=== PATIENT | female | born 2000 | race Caucasian/White ===

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

== ENCOUNTER 2021-06-21 23:00 | Inpatient (IN) ==
[2021-06-21 23:36] LABS: Basophils # (auto) 0.02 K/uL (0-0.2); Basophils % (auto) 0.2 %; Eosinophils # (auto) 0.74 K/uL (0-0.5); Eosinophils % (auto) 8.2 %; Hematocrit (blood only) 40.6 % (37-47); Hemoglobin 13.6 g/dL (12.0-16.0); Immature Granulocytes # (auto) 0.01 K/uL (0.00-0.02); Immature Granulocytes % (auto) 0.1 %; Lymphocytes # (auto) 2.01 K/uL (1.2-3.4); Lymphocytes % (auto) 22.4 %; Mean Corpuscular Hemoglobin 30.6 pg (25-34); Mean Corpuscular Hgb Conc 33.5 g/dL (32-36); Mean Corpuscular Volume 91.4 fL (80-100); Mean Platelet Volume 10.1 fL (7.4-10.4); Monocytes # (auto) 0.61 K/uL (0.11-0.59); Monocytes % (auto) 6.8 %; Neutrophils # (auto) 5.58 K/uL (1.4-6.5); Neutrophils % (auto) 62.3 %; Platelet Count 306 K/uL (130-400); RDW Coefficient of Variation 12.3 % (11.5-14.5); RDW Standard Deviation 41.6 fL (36.4-46.3); Red Blood Count 4.44 M/uL (4.2-5.4); White Blood Count 8.97 K/uL (4.8-10.8)
[2021-06-21 23:44] LABS: Appearance Urine Turbid (Clear); Bacteria Urine Automated 1+ (Negative); Bilirubin Urine Negative (Negative); Blood Urine Negative (Negative); Color Urine Yellow; Epithelial Cell Urine Auto >30 /lpf (0-5); Glucose Urine UA Negative (Negative); Ketones Urine Negative (Negative); Leukocyte Esterase Urine Trace (Negative); Nitrite Urine Negative (Negative); Protein Urine Negative (Negative); RBC Urine Automated 0-4 /hpf (0-4); Specific Gravity Urine 1.023 (1.000-1.030); Urobilinogen Urine Negative (Negative)
--- NOTE | 2021-06-21 23:50 | Emergency Department Note ---
Impression & Plan Suicidal ideation The patient was admitted to [facility] ED Provider Note NAME: DANNY MOON AGE: 20 SEX: F ARRIVES VIA: Walk-In INFORMANT: Patient, the patient's mother ED PROVIDER(S): Alayna Trent DO CHIEF COMPLAINT: Suicidal ideation PLAN: Disposition: The patient was admitted to [facility] Condition: Stable MEDICAL DECISION MAKING: This is a 20-year-old female patient who presents to the emergency department with suicidal thoughts. Patient was medically cleared. The patient was willing to admit herself voluntarily for inpatient psychiatric care. She was evaluated by the ED psychiatric dependency case manager and then evaluated by staff from [facility]. She will be admitted there. Triage Nursing notes reviewed and agree with them. Additional history obtained from mother who was at the bedside Vital Signs: reviewed and unremarkable Differential diagnosis: Drug abuse, mood disorder, thought disorder, suicidal ideation Diagnostics interpreted by me: Laboratory studies: See below HPI: 20/F arrives for evaluation of suicidal thoughts. The patient presents to the emergency department with her mother with increasing suicidal thoughts. The patient has a history of depression and anxiety and has been having increasing suicidal thoughts as a result of not having a safe space to live. She describes living amongst a joseph infested apartment. She feels depressed about her living space and has voiced some suicidal thoughts. Patient does admit to alcohol and marijuana abuse. She is currently unemployed and has taken a leave of absence from college at [employer]. ROS: See above HPI for pertinent positives & negatives. A total of 10 systems reviewed and were otherwise negative. PAST MEDICAL HISTORY:Depression and anxiety PAST SURGICAL HISTORY:None FAMILY HISTORY:The patient's father committed suicide when she was 6 years old SOCIAL HISTORY:The patient does drink alcohol and smoke marijuana socially as she describes it. Her last use of both of these was 2 days ago. HOME MEDICATIONS:See list ALLERGIES:Various dyes VITALS:See Below PHYSICAL EXAMINATION: HEENT: Head - normocephalic and atraumatic. Pupils are equal, round, and reactive to light. Extraocular eye muscles are intact, and sclera are anicteric. Nose - moist nasal mucosa without discharge. Mouth - moist buccal mucosa. Oropharynx is nonerythematous and there is no tonsillar exudate or edema noted. Neck: Supple; no no cervical lymphadenopathy or thyromegaly Heart: Regular rate and rhythm. There is a normal S1 and S2 with no murmurs, clicks, or gallops appreciated. Lungs: Clear to auscultation bilaterally with no wheezes, rales, or rhonchi. Abdomen: Soft, completely nontender, nondistended, with good bowel sounds. There are no palpable pulsatile masses or hepatosplenomegaly. There is no guarding, rigidity, or rebound noted. Extremities: No evidence of cyanosis, clubbing, or edema. There are easily palpable peripheral pulses. Skin: warm and dry with good turgor and no rashes. Psych: The patient appears to be depressed. She has a flat affect. She does make normal eye contact and answers questions appropriately ED COURSE: Times/Reassessments: 2325: The patient was evaluated in room A5. A complete history and physical was performed. Laboratory studies were drawn as above. The patient was medically cleared. The patient was evaluated by the ED psychiatric dependency case manager. She does meet criteria for inpatient psychiatric care. She is willing to admit herself voluntarily. She was evaluated by staff from [facility]. Alayna Trent DO Past Med/Surg History Medical History (Updated 06/23/21 @ 15:47 by Alayna Trent DO) Depression Social History Smoking Status: Current some day smoker Preferred Language: American Communication Ability: Effective [employer] Worker Required: No Beliefs That Will Affect Care: None Feels Safe at Home: No Assistive Devices: Glasses Allergies Allergies Allergy/AdvReac Type Severity Reaction Status Date / Time blue dye Allergy Verified 06/22/21 10:23 red (food color) Allergy Verified 06/22/21 10:23 red dye Allergy Verified 06/22/21 10:23 blue dye AdvReac Hives Uncoded 01/31/19 18:43 Home Meds Previous Rx's Medication Instructions Recorded citalopram 10 mg tablet 10 mg PO HS #90 tab 02/04/19 hydroxyzine HCl 25 mg tablet 25 mg PO Q4H PRN #30 tab 02/04/19 Results & Data (ED) Vital Signs Vital Signs - 24 hr 06/21/21 23:02 Temperature 36.7 C Temperature Source Temporal Artery Scan Pulse Rate 80 Respiratory Rate 18 Respiratory Depth Normal Blood Pressure 113/67 Blood Pressure Mean 82 Pulse Oximetry 100 Oxygen Delivery Method Room Air Sepsis New/Unexplained Change in Mental Status N/A Sepsis Action Taken by Nursing No Action Required Laboratory Data Result diagrams: 06/21/21 23:20 06/21/21 23:20 Lab Results 06/21/21 06/21/21 06/21/21 Range/Units 23:20 23:20 23:20 WBC 8.97 (4.8-10.8) K/uL RBC 4.44 (4.2-5.4) M/uL Hgb 13.6 (12.0-16.0) g/dL Hct 40.6 (37-47) % MCV 91.4 (80-100) fL MCH 30.6 (25-34) pg MCHC 33.5 (32-36) g/dL RDW Std Deviation 41.6 (36.4-46.3) fL RDW Coeff of Norma 12.3 (11.5-14.5) % Plt Count 306 (130-400) K/uL MPV 10.1 (7.4-10.4) fL Immature Gran % (Auto) 0.1 % Neut % (Auto) 62.3 % Lymph % (Auto) 22.4 % [place] % (Auto) 6.8 % Eos % (Auto) 8.2 % Baso % (Auto) 0.2 % Neut # (Auto) 5.58 (1.4-6.5) K/uL Lymph # (Auto) 2.01 (1.2-3.4) K/uL [place] # (Auto) 0.61 H (0.11-0.59) K/uL Eos # (Auto) 0.74 H (0-0.5) K/uL Baso # (Auto) 0.02 (0-0.2) K/uL Immature Gran # (Auto) 0.01 (0.00-0.02) K/uL Sodium 141 (136-145) mmol/L Potassium 4.1 (3.5-5.1) mmol/L Chloride 108 H (98-107) mmol/L Carbon Dioxide 28 (21-32) mmol/L Anion Gap 5.0 (3-11) BUN 13 (7-18) mg/dl Creatinine 0.70 (0.6-1.2) mg/dl Est Cr Clr Drug Dosing 101.2 ml/min Est GFR ( Amer) 144.6 ml/min Est GFR (Non-Af Amer) 124.7 ml/min BUN/Creatinine Ratio 19.0 (10-20) Glucose 85 (70-99) mg/dl Calcium 9.3 (8.5-10.1) mg/dl Total Bilirubin 0.4 (0.2-1) mg/dl AST 13 L (15-37) U/L ALT 20 (12-78) U/L Alkaline Phosphatase 77 (45-117) U/L Total Protein 8.2 (6.4-8.2) gm/dl Albumin 3.9 (3.4-5.0) gm/dl Globulin 4.3 H (2.5-4.0) gm/dl Albumin/Globulin Ratio 0.9 (0.9-2) TSH 2.350 (0.300-4.500) uIu/ml Urine Color Urine Appearance (Clear) Urine pH (4.5-7.5) Ur Specific [place] (1.000-1.030) Urine Protein (Negative) Urine Glucose (UA) (Negative) Urine Ketones (Negative) Urine Blood (Negative) Urine Nitrite (Negative) Urine Bilirubin (Negative) Urine Urobilinogen (Negative) Ur Leukocyte Esterase (Negative) Urine WBC (Auto) (0-5) /hpf Urine RBC (Auto) (0-4) /hpf U Hyaline Cast (Auto) (0-5) /lpf U Epithel Cells (Auto) (0-5) /lpf Urine Bacteria (Auto) (Negative) POC Ur Test (NEG) Salicylates < 1.7 L (2.8-20) mg/dl Urine Opiates Screen (Neg) Ur Methadone, Qual (Neg) Acetaminophen < 2 L (10-30) ug/ml Urine Barbiturates (Neg) Ur Phencyclidine (PCP) (Neg) U Amphetamin/Meth Scrn (Neg) MDMA (Ecstasy) Screen (Neg) U Benzodiazepines Scrn (Neg) Ur Cocaine Metabolite (Neg) U Marijuana (THC) Screen (Neg) Ethyl Alcohol mg/dL (0-3) mg/dl 06/21/21 06/21/21 06/21/21 Range/Units 23:20 23:22 23:22 WBC (4.8-10.8) K/uL RBC (4.2-5.4) M/uL Hgb (12.0-16.0) g/dL Hct (37-47) % MCV (80-100) fL MCH (25-34) pg MCHC (32-36) g/dL RDW Std Deviation (36.4-46.3) fL RDW Coeff of Norma (11.5-14.5) % Plt Count (130-400) K/uL MPV (7.4-10.4) fL Immature Gran % (Auto) % Neut % (Auto) % Lymph % (Auto) % [place] % (Auto) % Eos % (Auto) % Baso % (Auto) % Neut # (Auto) (1.4-6.5) K/uL Lymph # (Auto) (1.2-3.4) K/uL [place] # (Auto) (0.11-0.59) K/uL Eos # (Auto) (0-0.5) K/uL Baso # (Auto) (0-0.2) K/uL Immature Gran # (Auto) (0.00-0.02) K/uL Sodium (136-145) mmol/L Potassium (3.5-5.1) mmol/L Chloride (98-107) mmol/L Carbon Dioxide (21-32) mmol/L Anion Gap (3-11) BUN (7-18) mg/dl Creatinine (0.6-1.2) mg/dl Est Cr Clr Drug Dosing ml/min Est GFR ( Amer) ml/min Est GFR (Non-Af Amer) ml/min BUN/Creatinine Ratio (10-20) Glucose (70-99) mg/dl Calcium (8.5-10.1) mg/dl Total Bilirubin (0.2-1) mg/dl AST (15-37) U/L ALT (12-78) U/L Alkaline Phosphatase (45-117) U/L Total Protein (6.4-8.2) gm/dl Albumin (3.4-5.0) gm/dl Globulin (2.5-4.0) gm/dl Albumin/Globulin Ratio (0.9-2) TSH (0.300-4.500) uIu/ml Urine Color Yellow Urine Appearance Turbid A (Clear) Urine pH 8.0 H (4.5-7.5) Ur Specific [place] 1.023 (1.000-1.030) Urine Protein Negative (Negative) Urine Glucose (UA) Negative (Negative) Urine Ketones Negative (Negative) Urine Blood Negative (Negative) Urine Nitrite Negative (Negative) Urine Bilirubin Negative (Negative) Urine Urobilinogen Negative (Negative) Ur Leukocyte Esterase Trace H (Negative) Urine WBC (Auto) 5-10 H (0-5) /hpf Urine RBC (Auto) 0-4 (0-4) /hpf U Hyaline Cast (Auto) 1-5 (0-5) /lpf U Epithel Cells (Auto) >30 H (0-5) /lpf Urine Bacteria (Auto) 1+ H (Negative) POC Ur Test (NEG) Salicylates (2.8-20) mg/dl Urine Opiates Screen Neg (Neg) Ur Methadone, Qual Neg (Neg) Acetaminophen (10-30) ug/ml Urine Barbiturates Neg (Neg) Ur Phencyclidine (PCP) Neg (Neg) U Amphetamin/Meth Scrn Neg (Neg) MDMA (Ecstasy) Screen Neg (Neg) U Benzodiazepines Scrn Neg (Neg) Ur Cocaine Metabolite Neg (Neg) U Marijuana (THC) Screen Pos H (Neg) Ethyl Alcohol mg/dL < 3.0 (0-3) mg/dl 06/21/21 Range/Units 23:22 WBC (4.8-10.8) K/uL RBC (4.2-5.4) M/uL Hgb (12.0-16.0) g/dL Hct (37-47) % MCV (80-100) fL MCH (25-34) pg MCHC (32-36) g/dL RDW Std Deviation (36.4-46.3) fL RDW Coeff of Norma (11.5-14.5) % Plt Count (130-400) K/uL MPV (7.4-10.4) fL Immature Gran % (Auto) % Neut % (Auto) % Lymph % (Auto) % [place] % (Auto) % Eos % (Auto) % Baso % (Auto) % Neut # (Auto) (1.4-6.5) K/uL Lymph # (Auto) (1.2-3.4) K/uL [place] # (Auto) (0.11-0.59) K/uL Eos # (Auto) (0-0.5) K/uL Baso # (Auto) (0-0.2) K/uL Immature Gran # (Auto) (0.00-0.02) K/uL Sodium (136-145) mmol/L Potassium (3.5-5.1) mmol/L Chloride (98-107) mmol/L Carbon Dioxide (21-32) mmol/L Anion Gap (3-11) BUN (7-18) mg/dl Creatinine (0.6-1.2) mg/dl Est Cr Clr Drug Dosing ml/min Est GFR ( Amer) ml/min Est GFR (Non-Af Amer) ml/min BUN/Creatinine Ratio (10-20) Glucose (70-99) mg/dl Calcium (8.5-10.1) mg/dl Total Bilirubin (0.2-1) mg/dl AST (15-37) U/L ALT (12-78) U/L Alkaline Phosphatase (45-117) U/L Total Protein (6.4-8.2) gm/dl Albumin (3.4-5.0) gm/dl Globulin (2.5-4.0) gm/dl Albumin/Globulin Ratio (0.9-2) TSH (0.300-4.500) uIu/ml Urine Color Urine Appearance (Clear) Urine pH (4.5-7.5) Ur Specific [place] (1.000-1.030) Urine Protein (Negative) Urine Glucose (UA) (Negative) Urine Ketones (Negative) Urine Blood (Negative) Urine Nitrite (Negative) Urine Bilirubin (Negative) Urine Urobilinogen (Negative) Ur Leukocyte Esterase (Negative) Urine WBC (Auto) (0-5) /hpf Urine RBC (Auto) (0-4) /hpf U Hyaline Cast (Auto) (0-5) /lpf U Epithel Cells (Auto) (0-5) /lpf Urine Bacteria (Auto) (Negative) POC Ur Test NEG (NEG) Salicylates (2.8-20) mg/dl Urine Opiates Screen (Neg) Ur Methadone, Qual (Neg) Acetaminophen (10-30) ug/ml Urine Barbiturates (Neg) Ur Phencyclidine (PCP) (Neg) U Amphetamin/Meth Scrn (Neg) MDMA (Ecstasy) Screen (Neg) U Benzodiazepines Scrn (Neg) Ur Cocaine Metabolite (Neg) U Marijuana (THC) Screen (Neg) Ethyl Alcohol mg/dL (0-3) mg/dl Administered Medications Escitalopram Oxalate (Escitalopram Oxalate 10 Mg Tab) 10 mg PO QAM [facility] Stop: 07/23/21 08:59 Last Admin: 06/23/21 08:26 Dose: 10 mg Documented by: [id number] Loratadine (Loratadine 10 Mg Tab) [facility] [place] [facility] [place] Stop: 07/22/21 08:59 Last Admin: 06/23/21 08:26 Dose: 10 mg Documented by: [id number] Admin: 06/22/21 09:03 Dose: 10 mg Documented by: [id number] Wixela: Non- Formulary Patient's Own Med 1 ea INH BID [facility] Stop: 07/22/21 08:59 Last Admin: 06/23/21 08:26 Dose: 1 puffs Documented by: [id number] Admin: 06/22/21 20:16 Dose: 1 puffs Documented by: [id number] Admin: 06/22/21 09:03 Dose: 1 ea Documented by: [id number] Discontinued Medications Diazepam (Diazepam 5 Mg Tablet) 5 mg PO NOW ONE Stop: 06/22/21 11:40 Last Admin: 06/22/21 12:18 Dose: 5 mg Documented by: [id number] Discharge Plan Visit Data Chief Complaint: Mental Health Evaluation Stated Complaint: FEELING BAD FOR AWHILE MENTALLY & PHYSICALLY ED Provider: Alayna Trent Discharge Problem: Suicidal ideation Patient Disposition: Admitted As Inpatient Discharge Instructions Interventions: ED Discharge Assessment Last Done: 06/22/21 02:58
[2021-06-21 23:52] LABS: Albumin Level 3.9 gm/dl (3.4-5.0); Calcium 9.3 mg/dl (8.5-10.1); Creatinine Clr Calc Pharmacy 101.2 ml/min; Est GFR (African American) 144.6 ml/min; Est GFR (Non-African American) 124.7 ml/min; Potassium 4.1 mmol/L (3.5-5.1)
[2021-06-21 23:57] LABS: Amphetamines+Metham, Urine Neg (Neg); Barbiturates, Urine Neg (Neg); Benzodiazepine, Urine Neg (Neg); Cocaine, Urine Neg (Neg); MDMA (Ecstacy), Urine Neg (Neg); Methadone, Urine Neg (Neg); Opiate, Urine Neg (Neg); Phencyclidine, Urine Neg (Neg)
[2021-06-22 00:02] LABS: Albumin Globulin Ratio 0.9 (0.9-2); Bilirubin,Total 0.4 mg/dl (0.2-1); Globulin 4.3 gm/dl (2.5-4.0); Thyroid Stimulating Hormone 2.35 uIu/ml (0.300-4.500); Total Protein 8.2 gm/dl (6.4-8.2)
[2021-06-22 00:17] LABS: Acetaminophen < 2 ug/ml (10-30); Salicylate < 1.7 mg/dl (2.8-20)
[2021-06-22] MEDS ORDERED: SODIUM CHLORIDE 0.65% NA SOLN 45 ML (OCEAN) PRN (03:26)
[2021-06-22] MEDS ORDERED: ACETAMINOPHEN 325 MG TAB PO PRN (03:26)
[2021-06-22] MEDS ORDERED: MAGNESIUM HYDROXIDE SUSP 30 ML UDC PO PRN (03:26)
[2021-06-22] MEDS ORDERED: BISMUTH SUBSALICYLATE LIQD 236 ML PO PRN (03:26)
[2021-06-22] MEDS ORDERED: hydrOXYzine HCl 25 MG TAB PO PRN ×2 (03:26)
[2021-06-22] MEDS ORDERED: ALUMINUM/MAGNESIUM SUSP 30 ML UDC PO PRN (03:26)
[2021-06-22] MEDS ORDERED: ALBUTEROL HFA 8 GM INHALER INH PRN (03:29)
[2021-06-22] MEDS: WIXELA INH SCH ×2 (09:03→20:16)
[2021-06-22] MEDS: LORATADINE 10 MG TAB PO SCH (09:03)
[2021-06-22] MEDS ORDERED: diazePAM 5 MG TABLET PO ONE (11:39)
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
[2021-06-23] MEDS: LORATADINE 10 MG TAB PO SCH (08:26)
[2021-06-23] MEDS: WIXELA INH SCH ×2 (08:26→20:41)
[2021-06-23] MEDS: ESCITALOPRAM OXALATE 10 MG TAB PO SCH (08:26)
--- NOTE | 2021-06-23 14:39 | Psychiatric Progress Note ---
Date of Service June 23, 2021 Impression / Recommendations Impression This is a 20-year-old female with a history of depression, anxiety, PTSD who presents with a decompensation of such in relation to her social and interpersonal issues. Patient will benefit from inpatient hospitalization for purposes of safety, stabilization, and medication management. She seems to be self-deprecating along with a poor sense of self-esteem. She also seems to display catastrophic thinking throughout the course of the interview. (1) Mood disorder: The patient was admitted to the [facility] ([facility]) on every 15 minute checks (behavioral with suicide precautions for safety. The patient will participate in group, recreational, and milieu therapies and will be offered additional individual and family sessions as clinically appropriate. 06/23/2021-- will continue with lexapro 10mg po qam. patient making progress 06/22/2021will plan to start the patient on Lexapro 10 mg p.o. every morning Protective Factors Assessment Employed: No Interval History Chief Complaint "I'm doing well". Review of Systems Sleep Information Total Hours of Sleep: 8 Sleep Comments: admitted at 0305. Meal Information Percent Meal Consumed - Breakfast: 50 Percent Meal Consumed - Lunch: 100 Percent Meal Consumed - Dinner: 100 Nutrition Comment: poor appetite Subjective Subjective Patient seen, chart reviewed and case discussed with treatment team, nursing and social work. Patient reports a good night of sleep and strong appetite. Compliant with lexapro medication. No side effects reported or observed. Regarding mood, patient reports some improvement which they attribute to the medications as well as the therapy they have received on the unit. Mood still remains poor. I spent 30 minutes with the patient, 50% of which was dedicated to counselling and coordination of care. Physical Exam Psychiatric Orientation: alert and oriented x 3 Apperance: appropriately dressed Eye Contact: + fair eye contact Motor Behavior: no abnormal motor movements Speech: normal rate/rhythm/volume of speech Affect: + depressed affect, + anxious affect and + tearful affect Mood: + depressed mood, + anxious mood and + dysphoric mood Thought Process: goal directed thought process, clear/coherent thought process and + perseveration Thought Content: + cognitive distortions and reality based without delusions Suicidal Thoughts: denies suicidal thoughts Homicidal Thoughts: denies homicidal thoughts Hallucinations: no auditory hallucinations and no visual hallucinations Cognition: recent memory grossly intact Estimated Intelligence: average estimated intelligence Insight: + poor insight Judgement: + fair judgement Vital Signs (Past 24 Hours) Last Vital Signs Temp 36.7 C 06/23/21 06:55 Pulse 101 H 06/23/21 06:55 Resp 16 06/23/21 06:55 BP 105/64 06/23/21 06:55 Pulse Ox 96 06/22/21 13:33 Results & Data ([facility]) Current Inpatient Medications Current Inpatient Medications: Current Inpatient Medications Acetaminophen (Acetaminophen 325 Mg Tab) 650 mg PO Q4H PRN PRN Reason: Headache or Minor Fever Stop: 07/22/21 03:25 Al Hydrox/Mg Hydrox/Simethicone (Aluminum/Magnesium Susp 30 Ml Udc) 30 ml PO Q4H PRN PRN Reason: GI Upset Stop: 07/22/21 03:25 Albuterol (Albuterol Hfa 8 Gm Inhaler) 2 puffs INH Q6R PRN PRN Reason: Shortness Of Breath Stop: 07/22/21 03:28 Bismuth Subsalicylate (Bismuth Subsalicylate Liqd 236 Ml) 15 ml PO PRN PRN PRN Reason: Loose Stool Stop: 07/22/21 03:25 Escitalopram Oxalate (Escitalopram Oxalate 10 Mg Tab) 10 mg PO QAM ROSIO Stop: 07/23/21 08:59 Last Admin: 06/23/21 08:26 Dose: 10 mg Documented by: Hydroxyzine HCl (Hydroxyzine Hcl 25 Mg Tab) 50 mg PO HSZ PRN PRN Reason: Insomnia Stop: 07/22/21 03:25 Hydroxyzine HCl (Hydroxyzine Hcl 25 Mg Tab) 25 mg PO Q4H PRN PRN Reason: Anxiety Stop: 07/22/21 03:25 Loratadine (Loratadine 10 Mg Tab) 10 mg PO QAM ROSIO Stop: 07/22/21 08:59 Last Admin: 06/23/21 08:26 Dose: 10 mg Documented by: Magnesium Hydroxide (Magnesium Hydroxide Susp 30 Ml Udc) 30 ml PO DAILY PRN PRN Reason: Constipation Stop: 07/22/21 03:25 Wixela: Non- Formulary Patient's Own Med 1 ea INH BID ROSIO Stop: 07/22/21 08:59 Last Admin: 06/23/21 08:26 Dose: 1 puffs Documented by: Sodium Chloride (Sodium Chloride 0.65% Na Soln 45 Ml ([place])) 1 - 2 sprays NA PRN PRN PRN Reason: Nasal Dryness/Congestion Stop: 07/22/21 03:25 Mental Health & Subst Abuse Tx Therapist Name of Therapist: [facility] Therapist's Date of Therapist Appointment: 06/23/21 Therapy Appointment Comment: [address], [place], [address] Machine Filler Shredder Name of Machine Filler Shredder: N/A Post Discharge Appointments Primary Care Physician Name Of Family Doctor: [facility] Shannen Mora Primary Care Provider Appointment Comment: [address], [place] [address] Contact Information Discharge Discharge Address: [address] [place] [id number]
[2021-06-23] MEDS ORDERED: LORazepam 1 MG TAB PO PRN (14:54)
[2021-06-24] MEDS: LORATADINE 10 MG TAB PO SCH (09:01)
[2021-06-24] MEDS: ESCITALOPRAM OXALATE 10 MG TAB PO SCH (09:01)
[2021-06-24] MEDS: WIXELA INH SCH ×2 (09:02→21:03)
--- NOTE | 2021-06-24 16:22 | Psychiatric Progress Note ---
Date of Service June 24, 2021 Impression / Recommendations Impression This is a 20-year-old female with a history of depression, anxiety, PTSD who presents with a decompensation of such in relation to her social and interpersonal issues. Patient will benefit from inpatient hospitalization for purposes of safety, stabilization, and medication management. She seems to be self-deprecating along with a poor sense of self-esteem. She also seems to display catastrophic thinking throughout the course of the interview. (1) Mood disorder: The patient was admitted to the [facility] ([facility]) on every 15 minute checks (behavioral with suicide precautions for safety. The patient will participate in group, recreational, and milieu therapies and will be offered additional individual and family sessions as clinically appropriate. 06/24/2021atient making incremental progress. 06/23/2021-- will continue with lexapro 10mg po qam. patient making progress 06/22/2021will plan to start the patient on Lexapro 10 mg p.o. every morning Protective Factors Assessment Employed: No Interval History Chief Complaint "I called my mom". Review of Systems Sleep Information Total Hours of Sleep: 7.25 Sleep Comments: pt on q-15 minute checks Meal Information Percent Meal Consumed - Breakfast: 50 Percent Meal Consumed - Lunch: 100 Percent Meal Consumed - Dinner: 100 Nutrition Comment: poor appetite Subjective Subjective Patient seen, chart reviewed and case discussed with treatment team, nursing and social work. Patient reports a good night of sleep and strong appetite. No side effects reported or observed. Regarding mood, patient reports some improvement which they attribute to the medications as well as the therapy they have received on the unit. Patient has been in communications with her mother, who she reports that she had a good conversation with. She continues to assess her ability to live in the community and where about that would be. Attends groups and interacts appropriately with peers. I spent 30 minutes with the patient, 50% of which was dedicated to counselling and coordination of care. Physical Exam Psychiatric Orientation: alert and oriented x 3 Apperance: appropriately dressed Eye Contact: + fair eye contact Motor Behavior: no abnormal motor movements Speech: normal rate/rhythm/volume of speech Affect: + depressed affect, + anxious affect and + tearful affect Mood: + depressed mood, + anxious mood and + dysphoric mood Thought Process: goal directed thought process, clear/coherent thought process and + perseveration Thought Content: + cognitive distortions and reality based without delusions Suicidal Thoughts: denies suicidal thoughts Homicidal Thoughts: denies homicidal thoughts Hallucinations: no auditory hallucinations and no visual hallucinations Cognition: recent memory grossly intact Estimated Intelligence: average estimated intelligence Insight: + poor insight Judgement: + fair judgement Vital Signs (Past 24 Hours) Last Vital Signs Temp 36.5 C 06/24/21 06:40 Pulse 71 06/24/21 06:41 Resp 16 06/24/21 06:40 BP 104/67 06/24/21 06:41 Pulse Ox 96 06/22/21 13:33 Results & Data ([facility]) Current Inpatient Medications Current Inpatient Medications: Current Inpatient Medications Acetaminophen (Acetaminophen 325 Mg Tab) 650 mg PO Q4H PRN PRN Reason: Headache or Minor Fever Stop: 07/22/21 03:25 Al Hydrox/Mg Hydrox/Simethicone (Aluminum/Magnesium Susp 30 Ml Udc) 30 ml PO Q4H PRN PRN Reason: GI Upset Stop: 07/22/21 03:25 Albuterol (Albuterol Hfa 8 Gm Inhaler) 2 puffs INH Q6R PRN PRN Reason: Shortness Of Breath Stop: 07/22/21 03:28 Bismuth Subsalicylate (Bismuth Subsalicylate Liqd 236 Ml) 15 ml PO PRN PRN PRN Reason: Loose Stool Stop: 07/22/21 03:25 Escitalopram Oxalate (Escitalopram Oxalate 10 Mg Tab) 10 mg PO QAM ROSIO Stop: 07/23/21 08:59 Last Admin: 06/24/21 09:01 Dose: 10 mg Documented by: Hydroxyzine HCl (Hydroxyzine Hcl 25 Mg Tab) 50 mg PO HSZ PRN PRN Reason: Insomnia Stop: 07/22/21 03:25 Hydroxyzine HCl (Hydroxyzine Hcl 25 Mg Tab) 25 mg PO Q4H PRN PRN Reason: Anxiety Stop: 07/22/21 03:25 Loratadine (Loratadine 10 Mg Tab) 10 mg PO QAM ROSIO Stop: 07/22/21 08:59 Last Admin: 06/24/21 09:01 Dose: 10 mg Documented by: Lorazepam (Lorazepam 1 Mg Tab) 1 mg PO Q6 PRN PRN Reason: Anxiety Stop: 07/23/21 14:53 Magnesium Hydroxide (Magnesium Hydroxide Susp 30 Ml Udc) 30 ml PO DAILY PRN PRN Reason: Constipation Stop: 07/22/21 03:25 Wixela: Non- Formulary Patient's Own Med 1 ea INH BID ROSIO Stop: 07/22/21 08:59 Last Admin: 06/24/21 09:02 Dose: 1 puffs Documented by: Sodium Chloride (Sodium Chloride 0.65% Na Soln 45 Ml ([place])) 1 - 2 sprays NA PRN PRN PRN Reason: Nasal Dryness/Congestion Stop: 07/22/21 03:25 Mental Health & Subst Abuse Tx Psychiatrist Name of Psychiatrist: Roopa Santacruz Psychiatrist's Psychiatric Appointment Comment: Telehealth Therapist Name of Therapist: [facility] Therapist's Date of Therapist Appointment: 06/29/21 Time of Therapist Appointment: 1:00 p.m. Therapy Appointment Comment: Telehealth Butter Liquefier Name of Butter Liquefier: N/A Post Discharge Appointments Primary Care Physician Name Of Family Doctor: [facility] - Shannen Mora Primary Care Provider Appointment Comment: [address], [place] [address] Contact Information Discharge Discharge Address: [address] [place] [id number]
[2021-06-25] MEDS: ESCITALOPRAM OXALATE 10 MG TAB PO SCH (09:07)
[2021-06-25] MEDS: LORATADINE 10 MG TAB PO SCH (09:07)
[2021-06-25] MEDS: WIXELA INH SCH ×2 (09:08→21:10)
[2021-06-25] MEDS ORDERED: NON-FORMULARY MEDICATION (Methylprednisolone 4 mg tablets,dose pack) SCH (11:45)
--- NOTE | 2021-06-25 11:45 | Psychiatric Progress Note ---
Date of Service June 25, 2021 Impression / Recommendations Impression This is a 20-year-old female with a history of depression, anxiety, PTSD who presents with a decompensation of such in relation to her social and interpersonal issues. Patient will benefit from inpatient hospitalization for purposes of safety, stabilization, and medication management. She seems to be self-deprecating along with a poor sense of self-esteem. She also seems to display catastrophic thinking throughout the course of the interview. (1) Mood disorder: The patient was admitted to the [facility] ([facility]) on every 15 minute checks (behavioral with suicide precautions for safety. The patient will participate in group, recreational, and milieu therapies and will be offered additional individual and family sessions as clinically appropriate. 06/25/2021--patient with some progress, will increase Lexapro dose to 20mg starting tomorrow morning 06/24/2021atient making incremental progress. 06/23/2021-- will continue with lexapro 10mg po qam. patient making progress 06/22/2021will plan to start the patient on Lexapro 10 mg p.o. every morning Protective Factors Assessment Employed: No Interval History Chief Complaint "I'm okay". Review of Systems Sleep Information Total Hours of Sleep: 7 Sleep Comments: pt on q-15 minute checks Meal Information Percent Meal Consumed - Breakfast: 90 Percent Meal Consumed - Lunch: 100 Percent Meal Consumed - Dinner: 75 Nutrition Comment: poor appetite Subjective Subjective Patient seen, chart reviewed and case discussed with treatment team, nursing and social work. Patient reports a good night of sleep and strong appetite. No side effects reported or observed. Regarding mood, patient reports some improvement which they attribute to the medications as well as the therapy they have received on the unit. She still reports feeling depressed, but denies suicidal ideation. Patient is reporting a return of her atopic dermatitis. She stated that she had this prior to coming into the unit but had not initiated treatment. She did bring a methylprednisone pack with her but was reluctant to take as fearful that it may affect her mood. However today's patient's condition with regards to her atopic dermatitis worsened and she is requesting the medication. She was informed that it will be provided for her. I spent 30 minutes with the patient, 50% of which was dedicated to counselling and coordination of care. Physical Exam Psychiatric Orientation: alert and oriented x 3 Apperance: appropriately dressed Eye Contact: + fair eye contact Motor Behavior: no abnormal motor movements Speech: normal rate/rhythm/volume of speech Affect: + depressed affect, + anxious affect and + tearful affect Mood: + depressed mood, + anxious mood and + dysphoric mood Thought Process: goal directed thought process, clear/coherent thought process and + perseveration Thought Content: + cognitive distortions and reality based without delusions Suicidal Thoughts: denies suicidal thoughts Homicidal Thoughts: denies homicidal thoughts Hallucinations: no auditory hallucinations and no visual hallucinations Cognition: recent memory grossly intact Estimated Intelligence: average estimated intelligence Insight: + poor insight Judgement: + fair judgement Vital Signs (Past 24 Hours) Last Vital Signs Temp 36.7 C 06/25/21 06:53 Pulse 75 06/25/21 06:53 Resp 18 06/25/21 06:53 BP 100/69 06/25/21 06:53 Pulse Ox 96 06/22/21 13:33 Results & Data ([facility]) Current Inpatient Medications Current Inpatient Medications: Current Inpatient Medications Acetaminophen (Acetaminophen 325 Mg Tab) 650 mg PO Q4H PRN PRN Reason: Headache or Minor Fever Stop: 07/22/21 03:25 Al Hydrox/Mg Hydrox/Simethicone (Aluminum/Magnesium Susp 30 Ml Udc) 30 ml PO Q4H PRN PRN Reason: GI Upset Stop: 07/22/21 03:25 Albuterol (Albuterol Hfa 8 Gm Inhaler) 2 puffs INH Q6R PRN PRN Reason: Shortness Of Breath Stop: 07/22/21 03:28 Bismuth Subsalicylate (Bismuth Subsalicylate Liqd 236 Ml) 15 ml PO PRN PRN PRN Reason: Loose Stool Stop: 07/22/21 03:25 Escitalopram Oxalate (Escitalopram Oxalate 10 Mg Tab) 10 mg PO QAM ROSIO Stop: 07/23/21 08:59 Last Admin: 06/25/21 09:07 Dose: 10 mg Documented by: Hydroxyzine HCl (Hydroxyzine Hcl 25 Mg Tab) 50 mg PO HSZ PRN PRN Reason: Insomnia Stop: 07/22/21 03:25 Hydroxyzine HCl (Hydroxyzine Hcl 25 Mg Tab) 25 mg PO Q4H PRN PRN Reason: Anxiety Stop: 07/22/21 03:25 Loratadine (Loratadine 10 Mg Tab) 10 mg PO QAM ROSIO Stop: 07/22/21 08:59 Last Admin: 06/25/21 09:07 Dose: 10 mg Documented by: Lorazepam (Lorazepam 1 Mg Tab) 1 mg PO Q6 PRN PRN Reason: Anxiety Stop: 07/23/21 14:53 Magnesium Hydroxide (Magnesium Hydroxide Susp 30 Ml Udc) 30 ml PO DAILY PRN PRN Reason: Constipation Stop: 07/22/21 03:25 Wixela: Non- Formulary Patient's Own Med 1 ea INH BID ROSIO Stop: 07/22/21 08:59 Last Admin: 06/25/21 09:08 Dose: 1 puffs Documented by: Sodium Chloride (Sodium Chloride 0.65% Na Soln 45 Ml ([place])) 1 - 2 sprays NA PRN PRN PRN Reason: Nasal Dryness/Congestion Stop: 07/22/21 03:25 Mental Health & Subst Abuse Tx Psychiatrist Name of Psychiatrist: Roopa Santacruz Psychiatrist's Psychiatric Appointment Comment: Telehealth Therapist Name of Therapist: [facility] Therapist's Date of Therapist Appointment: 06/29/21 Time of Therapist Appointment: 1:00 p.m. Therapy Appointment Comment: Telehealth Mortgage Specialist Name of Mortgage Specialist: N/A Post Discharge Appointments Primary Care Physician Name Of Family Doctor: [facility] - Shannen Mora Primary Care Provider Appointment Comment: [facility] [place] [id number] Contact Information Discharge Discharge Address: [address] [place] [id number]
[2021-06-25] MEDS: methylPREDNISolone 4 MG TAB, 6 DAY TAPER PO SCH ×3 (12:43→21:10)
[2021-06-26 09:35] LABS: Marijuana Quant, GCMS Urine 316 ng/mL (<5)
[2021-06-26] MEDS: WIXELA INH SCH ×2 (10:02→20:50)
[2021-06-26] MEDS: ESCITALOPRAM OXALATE 20 MG TAB PO SCH (10:02)
[2021-06-26] MEDS: LORATADINE 10 MG TAB PO SCH (10:02)
[2021-06-26] MEDS: methylPREDNISolone 4 MG TAB, 6 DAY TAPER PO SCH ×4 (10:03→20:50)
--- NOTE | 2021-06-26 11:41 | Psychiatric Progress Note ---
Date of Service June 26, 2021 Impression / Recommendations Impression This is a 20-year-old female with a history of depression, anxiety, PTSD who presents with a decompensation of such in relation to her social and interpersonal issues. Patient will benefit from inpatient hospitalization for purposes of safety, stabilization, and medication management. She seems to be self-deprecating along with a poor sense of self-esteem. She also seems to display catastrophic thinking throughout the course of the interview. (1) Mood disorder: The patient was admitted to the [facility] ([facility]) on every 15 minute checks (behavioral with suicide precautions for safety. The patient will participate in group, recreational, and milieu therapies and will be offered additional individual and family sessions as clinically appropriate. 06/26/2021atient with relative stability of mood, appears improved from admission. We will continue 20 mg of Lexapro for now and start discharge planning. 06/25/2021--patient with some progress, will increase Lexapro dose to 20mg starting tomorrow morning 06/24/2021atient making incremental progress. 06/23/2021-- will continue with lexapro 10mg po qam. patient making progress 06/22/2021will plan to start the patient on Lexapro 10 mg p.o. every morning Protective Factors Assessment Employed: No Interval History Chief Complaint "Im doing okay". Review of Systems Sleep Information Total Hours of Sleep: 8 Sleep Comments: pt on q-15 minute checks Meal Information Percent Meal Consumed - Breakfast: 100 Percent Meal Consumed - Lunch: 100 Percent Meal Consumed - Dinner: 100 Nutrition Comment: poor appetite Subjective Subjective Patient seen, chart reviewed and case discussed with treatment team, nursing and social work. Patient reports a good night of sleep and strong appetite. Patient took the increased dose of Lexapro today, 20 mg. No side effects reported or observed. Patient reports that her atopic dermatitis is better with the methylprednisolone tablets. Denies abrupt changes to mood. Regarding mood, patient reports some improvement which they attribute to the medications as well as the therapy they have received on the unit. She reports feeling more stable and is willing to consider living home with mom. We will have family meeting today and likely start discharge planning following. I spent 30 minutes with the patient, 50% of which was dedicated to counselling and coordination of care. Physical Exam Psychiatric Orientation: alert and oriented x 3 Apperance: appropriately dressed Eye Contact: + fair eye contact Motor Behavior: no abnormal motor movements Speech: normal rate/rhythm/volume of speech Affect: + depressed affect, + anxious affect and + tearful affect Mood: + depressed mood, + anxious mood and + dysphoric mood Thought Process: goal directed thought process, clear/coherent thought process and + perseveration Thought Content: + cognitive distortions and reality based without delusions Suicidal Thoughts: denies suicidal thoughts Homicidal Thoughts: denies homicidal thoughts Hallucinations: no auditory hallucinations and no visual hallucinations Cognition: recent memory grossly intact Estimated Intelligence: average estimated intelligence Insight: + poor insight Judgement: + fair judgement Vital Signs (Past 24 Hours) Last Vital Signs Temp 36.6 C 06/26/21 06:00 Pulse 106 H 06/26/21 06:24 Resp 16 06/26/21 06:00 BP 100/61 06/26/21 06:24 Pulse Ox 96 06/22/21 13:33 Results & Data (U) Laboratory Results Laboratory Results - last 24 hr 06/21/21 23:22 U Marijuana THC Carboxy 316 H Drug Screen Comment SEE NOTE Current Inpatient Medications Current Inpatient Medications: Current Inpatient Medications Acetaminophen (Acetaminophen 325 Mg Tab) 650 mg PO Q4H PRN PRN Reason: Headache or Minor Fever Stop: 07/22/21 03:25 Al Hydrox/Mg Hydrox/Simethicone (Aluminum/Magnesium Susp 30 Ml Udc) 30 ml PO Q4H PRN PRN Reason: GI Upset Stop: 07/22/21 03:25 Albuterol (Albuterol Hfa 8 Gm Inhaler) 2 puffs INH Q6R PRN PRN Reason: Shortness Of Breath Stop: 07/22/21 03:28 Bismuth Subsalicylate (Bismuth Subsalicylate Liqd 236 Ml) 15 ml PO PRN PRN PRN Reason: Loose Stool Stop: 07/22/21 03:25 Escitalopram Oxalate (Escitalopram Oxalate 20 Mg Tab) 20 mg PO QAM ROSIO Stop: 07/26/21 08:59 Last Admin: 06/26/21 10:02 Dose: 20 mg Documented by: Hydroxyzine HCl (Hydroxyzine Hcl 25 Mg Tab) 50 mg PO HSZ PRN PRN Reason: Insomnia Stop: 07/22/21 03:25 Hydroxyzine HCl (Hydroxyzine Hcl 25 Mg Tab) 25 mg PO Q4H PRN PRN Reason: Anxiety Stop: 07/22/21 03:25 Loratadine (Loratadine 10 Mg Tab) 10 mg PO QAM ROSIO Stop: 07/22/21 08:59 Last Admin: 06/26/21 10:02 Dose: 10 mg Documented by: Lorazepam (Lorazepam 1 Mg Tab) 1 mg PO Q6 PRN PRN Reason: Anxiety Stop: 07/23/21 14:53 Magnesium Hydroxide (Magnesium Hydroxide Susp 30 Ml Udc) 30 ml PO DAILY PRN PRN Reason: Constipation Stop: 07/22/21 03:25 Methylprednisolone (Methylprednisolone 4 Mg Tab, 6 Day Taper) 1 ea PO ACHS ROSIO Stop: 06/27/21 23:59 Last Admin: 06/26/21 10:03 Dose: 1 ea Documented by: Methylprednisolone (Methylprednisolone 4 Mg Tab, 6 Day Taper) 1 ea PO TID ROSIO Stop: 06/28/21 21:01 Methylprednisolone (Methylprednisolone 4 Mg Tab, 6 Day Taper) 1 ea PO BID ROSIO Stop: 06/29/21 21:01 Methylprednisolone (Methylprednisolone 4 Mg Tab, 6 Day Taper) 1 ea PO QAM ROSIO Stop: 06/30/21 09:01 Wixela: Non- Formulary Patient's Own Med 1 ea INH BID ROSIO Stop: 07/22/21 08:59 Last Admin: 06/26/21 10:02 Dose: 1 puffs Documented by: Sodium Chloride (Sodium Chloride 0.65% Na Soln 45 Ml ([place])) 1 - 2 sprays NA PRN PRN PRN Reason: Nasal Dryness/Congestion Stop: 07/22/21 03:25 Mental Health & Subst Abuse Tx Psychiatrist Name of Psychiatrist: Roopa Santacruz Psychiatrist's Psychiatric Appointment Comment: Telehealth Therapist Name of Therapist: [facility] Therapist's Date of Therapist Appointment: 06/29/21 Time of Therapist Appointment: 1:00 p.m. Therapy Appointment Comment: Telehealth Group Supervisor Yard Name of Group Supervisor Yard: N/A Post Discharge Appointments Primary Care Physician Name Of Family Doctor: [facility] - Shannen Mora Primary Care Provider Appointment Comment: [address], [place] [address] Contact Information Discharge Discharge Address: [address], [place] [address]
[2021-06-27] MEDS: ESCITALOPRAM OXALATE 20 MG TAB PO SCH (08:52)
[2021-06-27] MEDS: LORATADINE 10 MG TAB PO SCH (08:52)
[2021-06-27] MEDS: methylPREDNISolone 4 MG TAB, 6 DAY TAPER PO SCH ×4 (08:52→21:12)
[2021-06-27] MEDS: WIXELA INH SCH ×2 (10:36→21:13)
[2021-06-27] MEDS: FLUTICASONE/VILANTEROL 100/25MCG 14 PUFFS/INHALER INH SCH (10:40)
--- NOTE | 2021-06-27 15:42 | Psychiatric Progress Note ---
Date of Service June 27, 2021 Impression / Recommendations Impression This is a 20-year-old female with a history of depression, anxiety, PTSD who presents with a decompensation of such in relation to her social and interpersonal issues. Patient will benefit from inpatient hospitalization for purposes of safety, stabilization, and medication management. She seems to be self-deprecating along with a poor sense of self-esteem. She also seems to display catastrophic thinking throughout the course of the interview. (1) Mood disorder: The patient was admitted to the [facility] ([facility]) on every 15 minute checks (behavioral with suicide precautions for safety. The patient will participate in group, recreational, and milieu therapies and will be offered additional individual and family sessions as clinically appropriate. 06/27/2021we will continue with the current regimen for now, and we will continue to discharge planning 06/26/2021atient with relative stability of mood, appears improved from admi ssion. We will continue 20 mg of Lexapro for now and start discharge planning. 06/25/2021--patient with some progress, will increase Lexapro dose to 20mg starting tomorrow morning 06/24/2021atient making incremental progress. 06/23/2021-- will continue with lexapro 10mg po qam. patient making progress 06/22/2021will plan to start the patient on Lexapro 10 mg p.o. every morning Protective Factors Assessment Employed: No Interval History Chief Complaint "I had a rough family meeting". Review of Systems Sleep Information Total Hours of Sleep: 6.5 Sleep Comments: pt on q-15 minute checks Meal Information Percent Meal Consumed - Breakfast: 90 Percent Meal Consumed - Lunch: 100 Percent Meal Consumed - Dinner: 50 Nutrition Comment: pt. declined lunch; which was held for later Subjective Subjective Patient was seen & assessed and interval progress reviewed with treatment team nursing and social work Patient was initially scheduled to be discharged today, however she was quite upset by the family meeting yesterday and was unable to contract for safety outside of the hospital today. She continues to endorse suicidal thoughts, although they seem to be somewhat related to her placement and living situation, matters which she acknowledges cannot be fixed while on the psychiatric inpatient unit. She is compliant with her medication and cooperative with staff. She is participating in groups and interacting with her peers appropriately She is sleeping well and eating without issue I spent 30 minutes with the patient, 50% of which was dedicated to counselling and coordination of care. Physical Exam Psychiatric Orientation: alert and oriented x 3 Apperance: appropriately dressed Eye Contact: + fair eye contact Motor Behavior: no abnormal motor movements Speech: normal rate/rhythm/volume of speech Affect: + depressed affect, + anxious affect and + tearful affect Mood: + depressed mood, + anxious mood and + dysphoric mood Thought Process: goal directed thought process, clear/coherent thought process and + perseveration Thought Content: + cognitive distortions and reality based without delusions Suicidal Thoughts: denies suicidal thoughts Homicidal Thoughts: denies homicidal thoughts Hallucinations: no auditory hallucinations and no visual hallucinations Cognition: recent memory grossly intact Estimated Intelligence: average estimated intelligence Insight: + poor insight Judgement: + fair judgement Vital Signs (Past 24 Hours) Last Vital Signs Temp 36.7 C 06/27/21 06:34 Pulse 78 06/27/21 06:34 Resp 16 06/27/21 06:34 BP 113/69 06/27/21 06:34 Pulse Ox 96 06/22/21 13:33 Results & Data ([facility]) Current Inpatient Medications Current Inpatient Medications: Current Inpatient Medications Acetaminophen (Acetaminophen 325 Mg Tab) 650 mg PO Q4H PRN PRN Reason: Headache or Minor Fever Stop: 07/22/21 03:25 Al Hydrox/Mg Hydrox/Simethicone (Aluminum/Magnesium Susp 30 Ml Udc) 30 ml PO Q4H PRN PRN Reason: GI Upset Stop: 07/22/21 03:25 Albuterol (Albuterol Hfa 8 Gm Inhaler) 2 puffs INH Q6R PRN PRN Reason: Shortness Of Breath Stop: 07/22/21 03:28 Bismuth Subsalicylate (Bismuth Subsalicylate Liqd 236 Ml) 15 ml PO PRN PRN PRN Reason: Loose Stool Stop: 07/22/21 03:25 Escitalopram Oxalate (Escitalopram Oxalate 20 Mg Tab) 20 mg PO QAM ROSIO Stop: 07/26/21 08:59 Last Admin: 06/27/21 08:52 Dose: 20 mg Documented by: Fluticasone/Vilanterol (Fluticasone/Vilanterol 100/25mcg 14 Puffs/Inhaler) 1 puffs INH DAILY ROSIO Stop: 07/28/21 08:59 Last Admin: 06/27/21 10:40 Dose: 1 puffs Documented by: Hydroxyzine HCl (Hydroxyzine Hcl 25 Mg Tab) 50 mg PO HSZ PRN PRN Reason: Insomnia Stop: 07/22/21 03:25 Hydroxyzine HCl (Hydroxyzine Hcl 25 Mg Tab) 25 mg PO Q4H PRN PRN Reason: Anxiety Stop: 07/22/21 03:25 Last Admin: 06/26/21 13:10 Dose: 25 mg Documented by: Loratadine (Loratadine 10 Mg Tab) 10 mg PO QAM ROSIO Stop: 07/22/21 08:59 Last Admin: 06/27/21 08:52 Dose: 10 mg Documented by: Lorazepam (Lorazepam 1 Mg Tab) 1 mg PO Q6 PRN PRN Reason: Anxiety Stop: 07/23/21 14:53 Magnesium Hydroxide (Magnesium Hydroxide Susp 30 Ml Udc) 30 ml PO DAILY PRN PRN Reason: Constipation Stop: 07/22/21 03:25 Methylprednisolone (Methylprednisolone 4 Mg Tab, 6 Day Taper) 1 ea PO ACHS ROSIO Stop: 06/27/21 23:59 Last Admin: 06/27/21 12:31 Dose: 1 ea Documented by: Methylprednisolone (Methylprednisolone 4 Mg Tab, 6 Day Taper) 1 ea PO TID ROSIO Stop: 06/28/21 21:01 Methylprednisolone (Methylprednisolone 4 Mg Tab, 6 Day Taper) 1 ea PO BID ROSIO Stop: 06/29/21 21:01 Methylprednisolone (Methylprednisolone 4 Mg Tab, 6 Day Taper) 1 ea PO QAM ROSIO Stop: 06/30/21 09:01 [place]: Non- Formulary Patient's Own Med 1 ea INH BID ROSIO Stop: 07/22/21 08:59 Last Admin: 06/27/21 10:36 Dose: Not Given Documented by: Sodium Chloride (Sodium Chloride 0.65% Na Soln 45 Ml ([place])) 1 - 2 sprays NA PRN PRN PRN Reason: Nasal Dryness/Congestion Stop: 07/22/21 03:25 Mental Health & Subst Abuse Tx Psychiatrist Name of Psychiatrist: [facility] Psychiatrist's Psychiatric Appointment Comment: Telehealth Therapist Name of Therapist: [facility] The[facility]ist's Date of Therapist Appointment: 06/29/21 Time of Therapist Appointment: 1:00 p.m. Therapy Appointment Comment: Telehealth Manager Transplant Name of Manager Transplant: N/A Post Discharge Appointments Primary Care Physician Name Of Family Doctor: [facility] Shannen Mora Primary Care Provider Appointment Comment: [id number] [place] [address], [place] [id number] Contact Information Discharge Discharge Address: [address] [place] [id number]
[2021-06-28] MEDS ORDERED: methylPREDNISolone 4 MG TAB, 6 DAY TAPER PO SCH (09:00)
[2021-06-28] MEDS: ESCITALOPRAM OXALATE 20 MG TAB PO SCH (09:15)
[2021-06-28] MEDS: LORATADINE 10 MG TAB PO SCH (09:15)
[2021-06-28] MEDS: methylPREDNISolone 4 MG TAB, 6 DAY TAPER PO SCH ×2 (09:16→13:09)
[2021-06-28] MEDS: FLUTICASONE/VILANTEROL 100/25MCG 14 PUFFS/INHALER INH SCH (09:16)
[2021-06-28] MEDS: WIXELA INH SCH (09:17)
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
[2021-06-29] MEDS ORDERED: methylPREDNISolone 4 MG TAB, 6 DAY TAPER PO SCH (09:00)
[2021-06-29] MEDS ORDERED: FLUTICASONE/VILANTEROL 100/25MCG 14 PUFFS/INHALER INH SCH (09:00)
[2021-06-30] MEDS ORDERED: methylPREDNISolone 4 MG TAB, 6 DAY TAPER PO SCH (09:00)
== END 2021-06-28 13:57 | disposition home or self-care (01) | DRG 881 ==
LOC: ED 23:00 → 3S 06-22 02:38 → SUATTDRO 06-22 02:38 → 3S 06-22 02:58

== ENCOUNTER 2022-06-23 21:12 | Inpatient (IN) ==
[2022-06-23 22:48] LABS: Basophils # (auto) 0.05 K/uL (0-0.2); Basophils % (auto) 0.8 %; Eosinophils # (auto) 0.44 K/uL (0-0.50); Eosinophils % (auto) 6.6 %; Hematocrit (blood only) 39.6 % (34.1-44.9); Hemoglobin 13.5 g/dl (12.0-16.0); Immature Granulocytes # (auto) 0.01 K/uL (0.00-0.02); Immature Granulocytes % (auto) 0.2 %; Lymphocytes # (auto) 1.78 K/uL (1.2-3.4); Lymphocytes % (auto) 26.8 %; Mean Corpuscular Hemoglobin 30.8 pg (25.0-34.0); Mean Corpuscular Hgb Conc 34.1 g/dL (32.0-36.0); Mean Corpuscular Volume 90.2 fL (80.0-100.0); Mean Platelet Volume 9.5 fL (9.4-12.3); Monocytes # (auto) 0.36 K/uL (0.24-0.82); Monocytes % (auto) 5.4 %; Neutrophils % (auto) 60.2 %; Platelet Count 232 K/uL (130-400); RDW Coefficient of Variation 11.6 % (11.5-14.5); RDW Standard Deviation 38.1 fL (36.4-46.3); Red Blood Count 4.39 M/uL (3.93-5.22); White Blood Count 6.64 K/ul (4.8-10.8)
[2022-06-23] MEDS ORDERED: LURASIDONE HCL 40 MG TAB PO ONE (22:57)
[2022-06-23] MEDS ORDERED: GABAPENTIN 300 MG CAP PO ONE (22:57)
--- NOTE | 2022-06-23 22:57 | Emergency Department Note ---
Impression & Plan Generalized anxiety disorder with panic attacks, Depression with suicidal ideation ED Provider Note Provider: Agus Powell MD DATE OF SERVICE: 06/23/2022 CHIEF COMPLAINT: Worsening depression and anxiety HISTORY OF PRESENT ILLNESS: Patient is a 21-year-old female history of anxiety and depression presenting here today with mother. Currently living and working in [place]. Worsening anxiety depression last several weeks and told mother and was driven here for further evaluation. Prior inpatient stays here. Patient states she is long history of suicidal thoughts and depression. Suicide by father when she was younger. Prior history of suicide attempts but not recently. Patient states she is having worsening thoughts and is concerned she may try to harm her self. Denies a plan to me. Patient denies any HI. States she is wishing for inpatient treatment. Patient states he been taking her medications and working with a therapist and this is keeping the worst of the pain attacks away but she still quite anxious and depressed and not functional and cries most of the day. REVIEW OF SYSTEMS: A total of 10 review of systems was obtained and negative except as stated above in the HPI. PAST MEDICAL HISTORY: As noted above MEDICATIONS: Reviewed home medications SOCIAL HISTORY: lives and works in [place] PHYSICAL EXAM: GENERAL: alert and oriented in no acute distress on stretcher Head: normocephalic and atraumatic EYES: No injection, discharge or icterus. NECK: Trachea midline. Supple. ENT: Mucous membranes pink and moist. LUNGS: Airway patent. No retractions. Breath sounds clear with good air entry bilaterally. HEART: Regular rate and rhythm. No chest wall tenderness SKIN: Acyanotic, warm, dry, without rashes EXTREMITIES: Without swelling, tenderness or deformity NEUROLOGICAL: No focal deficits. No aphasia. No facial droop or slurred speech. Ambulatory. Psych: Endorses anxiety and depression tearful. Denies homicidal ideation. Not responding to external stimuli. Patient's laboratory studies reviewed. Differential includes Mood disorder, infection, hypoglycemia, electrolyte abnormalities, cardiac sources, intracerebral event, toxicologic, trauma, neurologic, as well as other pathologies. IMPRESSION/MEDICAL DECISION MAKING: Patient somewhat tearful. Basic labs obtained. No acute findings. Worsening depression and now some suicidal thoughts she states concern for her safety. Wishes for voluntary inpatient treatment. Seen with case management. Bed search initiated. Being evaluated by [facility] for possible admission there. 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 Analysis Required: No Beliefs That Will Affect Care: None Feels Safe at Home: Yes Assistive Devices: Glasses Allergies Allergies Allergy/AdvReac Type Severity Reaction Status Date / Time blue dye Allergy Verified 06/22/21 10:23 red (food color) Allergy Verified 06/22/21 10:23 red dye Allergy Verified 06/22/21 10:23 blue dye AdvReac Hives Uncoded 01/31/19 18:43 Home Meds Home Medications Medication Instructions Recorded Confirmed fluticasone 100 mcg-salmeterol 50 1 inh inhalation DAILY 06/25/21 06/24/22 mcg/dose blistr powdr for inhalation (Wixela Inhub) gabapentin 300 mg capsule 300 mg PO BID 06/24/22 06/24/22 lurasidone 20 mg tablet (Latuda) 20 mg PO DAILY 06/24/22 06/24/22 Previous Rx's Medication Instructions Recorded albuterol sulfate 90 mcg/actuation 2 puff inhalation Q6R PRN Wheezing 06/28/21 aerosol inhaler (Ventolin HFA) #1 g Results & Data (ED) Vital Signs Vital Signs - 24 hr 06/23/22 21:27 06/23/22 23:13 Temperature 37.0 C Temperature Source Temporal Artery Scan Pulse Rate 82 Pulse Rate [Right Finger] 66 Respiratory Rate 20 16 Respiratory Effort / Characteristics Non-Labored Respiratory Depth Normal Normal Blood Pressure 121/80 Blood Pressure [Right Arm] 105/71 Blood Pressure Mean 93 Blood Pressure Mean [Right Arm] 82 Pulse Oximetry 98 100 Oxygen Delivery Method Room Air Room Air Sepsis Recent Fever Within 48 Hours No Sepsis New/Unexplained Change in Mental Status N/A Sepsis Action Taken by Nursing No Action Required Laboratory Data Result diagrams: 06/23/22 22:36 06/23/22 22:36 Lab Results 06/23/22 06/23/22 06/23/22 Range/Units 00:20 22:36 22:36 WBC 6.64 (4.8-10.8) K/ul RBC 4.39 (3.93-5.22) M/uL Hgb 13.5 (12.0-16.0) g/dl Hct 39.6 (34.1-44.9) % MCV 90.2 (80.0-100.0) fL MCH 30.8 (25.0-34.0) pg MCHC 34.1 (32.0-36.0) g/dL RDW Std Deviation 38.1 (36.4-46.3) fL RDW Coeff of Norma 11.6 (11.5-14.5) % Plt Count 232 (130-400) K/uL MPV 9.5 (9.4-12.3) fL Immature Gran % (Auto) 0.2 % Neut % (Auto) 60.2 % Lymph % (Auto) 26.8 % [place] % (Auto) 5.4 % Eos % (Auto) 6.6 % Baso % (Auto) 0.8 % Neut # (Auto) 4.00 (1.4-6.5) K/uL Lymph # (Auto) 1.78 (1.2-3.4) K/uL [place] # (Auto) 0.36 (0.24-0.82) K/uL Eos # (Auto) 0.44 (0-0.50) K/uL Baso # (Auto) 0.05 (0-0.2) K/uL Immature Gran # (Auto) 0.01 (0.00-0.02) K/uL Sodium 139 (136-145) mmol/L Potassium 3.2 L (3.5-5.1) mmol/L Chloride 107 (98-107) mmol/L Carbon Dioxide 27 (21-32) mmol/L Anion Gap 5 (3-11) BUN 13 (6-23) mg/dl Creatinine 0.68 (0.6-1.2) mg/dl Est Cr Clr Drug Dosing 115.1 ml/min Est GFR ( Amer) 144.9 ml/min Est GFR (Non-Af Amer) 125.0 ml/min BUN/Creatinine Ratio 19.1 (10-20) Glucose 112 H (70-99(Fasting)) mg/dl Calcium 9.3 (8.5-10.1) mg/dl Total Bilirubin 1.4 H (0.2-1.0) mg/dl AST 14 (13-39) U/L ALT 11 (7-52) U/L Alkaline Phosphatase 55 (34-104) U/L Total Protein 7.3 (6.0-8.3) gm/dl Albumin 4.5 (3.4-5.0) gm/dl Globulin 2.8 (2.5-4.0) gm/dl Albumin/Globulin Ratio 1.6 (0.9-2) TSH (0.300-4.500) uIu/ml Urine Color Urine Appearance (Clear) Urine pH (4.5-7.5) Ur Specific [place] (1.000-1.030) Urine Protein (Negative) Urine Glucose (UA) (Negative) Urine Ketones (Negative) Urine Blood (Negative) Urine Nitrite (Negative) Urine Bilirubin (Negative) Urine Urobilinogen (Negative) Ur Leukocyte Esterase (Negative) POC Ur Test NEG (NEG) Salicylates (3.0-30) mg/dl Urine Opiates Screen (Neg) Ur Methadone, Qual (Neg) Acetaminophen (10-30) ug/ml Urine Barbiturates (Neg) Ur Phencyclidine (PCP) (Neg) U Amphetamin/Meth Scrn (Neg) MDMA (Ecstasy) Screen (Neg) U Benzodiazepines Scrn (Neg) Ur Cocaine Metabolite (Neg) U Marijuana (THC) Screen (Neg) Ethyl Alcohol mg/dL (<10.0) mg/dl SARS-CoV-2, RNA, NAAT (NEGATIVE) 06/23/22 06/23/22 06/24/22 Range/Units 22:36 22:36 00:20 WBC (4.8-10.8) K/ul RBC (3.93-5.22) M/uL Hgb (12.0-16.0) g/dl Hct (34.1-44.9) % MCV (80.0-100.0) fL MCH (25.0-34.0) pg MCHC (32.0-36.0) g/dL RDW Std Deviation (36.4-46.3) fL RDW Coeff of Norma (11.5-14.5) % Plt Count (130-400) K/uL MPV (9.4-12.3) fL Immature Gran % (Auto) % Neut % (Auto) % Lymph % (Auto) % [place] % (Auto) % Eos % (Auto) % Baso % (Auto) % Neut # (Auto) (1.4-6.5) K/uL Lymph # (Auto) (1.2-3.4) K/uL [place] # (Auto) (0.24-0.82) K/uL Eos # (Auto) (0-0.50) K/uL Baso # (Auto) (0-0.2) K/uL Immature Gran # (Auto) (0.00-0.02) K/uL Sodium (136-145) mmol/L Potassium (3.5-5.1) mmol/L Chloride (98-107) mmol/L Carbon Dioxide (21-32) mmol/L Anion Gap (3-11) BUN (6-23) mg/dl Creatinine (0.6-1.2) mg/dl Est Cr Clr Drug Dosing ml/min Est GFR ( Amer) ml/min Est GFR (Non-Af Amer) ml/min BUN/Creatinine Ratio (10-20) Glucose (70-99(Fasting)) mg/dl Calcium (8.5-10.1) mg/dl Total Bilirubin (0.2-1.0) mg/dl AST (13-39) U/L ALT (7-52) U/L Alkaline Phosphatase (34-104) U/L Total Protein (6.0-8.3) gm/dl Albumin (3.4-5.0) gm/dl Globulin (2.5-4.0) gm/dl Albumin/Globulin Ratio (0.9-2) TSH (0.300-4.500) uIu/ml Urine Color Yellow Urine Appearance Clear (Clear) Urine pH 7.0 (4.5-7.5) Ur Specific [place] 1.018 (1.000-1.030) Urine Protein Negative (Negative) Urine Glucose (UA) Negative (Negative) Urine Ketones Negative (Negative) Urine Blood Negative (Negative) Urine Nitrite Negative (Negative) Urine Bilirubin Negative (Negative) Urine Urobilinogen Negative (Negative) Ur Leukocyte Esterase Negative (Negative) POC Ur Test (NEG) Salicylates (3.0-30) mg/dl Urine Opiates Screen (Neg) Ur Methadone, Qual (Neg) Acetaminophen (10-30) ug/ml Urine Barbiturates (Neg) Ur Phencyclidine (PCP) (Neg) U Amphetamin/Meth Scrn (Neg) MDMA (Ecstasy) Screen (Neg) U Benzodiazepines Scrn (Neg) Ur Cocaine Metabolite (Neg) U Marijuana (THC) Screen (Neg) Ethyl Alcohol mg/dL < 10.0 (<10.0) mg/dl SARS-CoV-2, RNA, NAAT NEGATIVE (NEGATIVE) 06/24/22 06/24/22 06/24/22 Range/Units 00:20 00:22 00:22 WBC (4.8-10.8) K/ul RBC (3.93-5.22) M/uL Hgb (12.0-16.0) g/dl Hct (34.1-44.9) % MCV (80.0-100.0) fL MCH (25.0-34.0) pg MCHC (32.0-36.0) g/dL RDW Std Deviation (36.4-46.3) fL RDW Coeff of Norma (11.5-14.5) % Plt Count (130-400) K/uL MPV (9.4-12.3) fL Immature Gran % (Auto) % Neut % (Auto) % Lymph % (Auto) % [place] % (Auto) % Eos % (Auto) % Baso % (Auto) % Neut # (Auto) (1.4-6.5) K/uL Lymph # (Auto) (1.2-3.4) K/uL [place] # (Auto) (0.24-0.82) K/uL Eos # (Auto) (0-0.50) K/uL Baso # (Auto) (0-0.2) K/uL Immature Gran # (Auto) (0.00-0.02) K/uL Sodium (136-145) mmol/L Potassium (3.5-5.1) mmol/L Chloride (98-107) mmol/L Carbon Dioxide (21-32) mmol/L Anion Gap (3-11) BUN (6-23) mg/dl Creatinine (0.6-1.2) mg/dl Est Cr Clr Drug Dosing ml/min Est GFR ( Amer) ml/min Est GFR (Non-Af Amer) ml/min BUN/Creatinine Ratio (10-20) Glucose (70-99(Fasting)) mg/dl Calcium (8.5-10.1) mg/dl Total Bilirubin (0.2-1.0) mg/dl AST (13-39) U/L ALT (7-52) U/L Alkaline Phosphatase (34-104) U/L Total Protein (6.0-8.3) gm/dl Albumin (3.4-5.0) gm/dl Globulin (2.5-4.0) gm/dl Albumin/Globulin Ratio (0.9-2) TSH 3.957 (0.300-4.500) uIu/ml Urine Color Urine Appearance (Clear) Urine pH (4.5-7.5) Ur Specific [place] (1.000-1.030) Urine Protein (Negative) Urine Glucose (UA) (Negative) Urine Ketones (Negative) Urine Blood (Negative) Urine Nitrite (Negative) Urine Bilirubin (Negative) Urine Urobilinogen (Negative) Ur Leukocyte Esterase (Negative) POC Ur Test (NEG) Salicylates < 3.0 L (3.0-30) mg/dl Urine Opiates Screen Neg (Neg) Ur Methadone, Qual Neg (Neg) Acetaminophen < 3 L (10-30) ug/ml Urine Barbiturates Neg (Neg) Ur Phencyclidine (PCP) Neg (Neg) U Amphetamin/Meth Scrn Neg (Neg) MDMA (Ecstasy) Screen Neg (Neg) U Benzodiazepines Scrn Neg (Neg) Ur Cocaine Metabolite Neg (Neg) U Marijuana (THC) Screen Pos H (Neg) Ethyl Alcohol mg/dL (<10.0) mg/dl SARS-CoV-2, RNA, NAAT (NEGATIVE) Administered Medications Discontinued Medications Gabapentin (Gabapentin 300 Mg Cap) 300 mg PO ONCE ONE Stop: 06/23/22 22:58 Last Admin: 06/23/22 23:44 Dose: 300 mg Documented By: EL Lurasidone HCl (Lurasidone Hcl 40 Mg Tab) 20 mg PO ONCE ONE Stop: 06/23/22 22:58 Last Admin: 06/23/22 23:44 Dose: 20 mg Documented By: EL Discharge Plan Visit Data Chief Complaint: Mental Health Evaluation Stated Complaint: MENTAL HEALTH EVALUATION ED Provider: Sherry,Agus T Discharge Problem: Generalized anxiety disorder with panic attacks, Depression with suicidal ideation Patient Disposition: Still a Patient Forms Stand Alone Forms: My [facility], Suicide Prevention Resources Prescriptions Prescriptions: No Action fluticasone propion-salmeterol [Wixela Inhub] 100-50 mcg/dose blister with device 1 inh INHALATION DAILY albuterol sulfate [Ventolin HFA] 90 mcg/actuation Hfa Aerosol Inhaler 2 puff inhalation Q6R PRN (Reason: Wheezing) Qty: 1 0RF gabapentin 300 mg capsule 300 mg PO BID Latuda 20 mg tablet 20 mg PO DAILY Referrals Referrals: Shannen Craft D.O. [Primary Care Provider] -
[2022-06-23 23:08] LABS: Albumin Globulin Ratio 1.6 (0.9-2); Albumin Level 4.5 gm/dl (3.4-5.0); BUN Creatinine Ratio 19.1 (10-20); Bilirubin,Total 1.4 mg/dl (0.2-1.0); Calcium 9.3 mg/dl (8.5-10.1); Creatinine Clr Calc Pharmacy 115.1 ml/min; Est GFR (African American) 144.9 ml/min; Globulin 2.8 gm/dl (2.5-4.0); Potassium 3.2 mmol/L (3.5-5.1); Total Protein 7.3 gm/dl (6.0-8.3)
[2022-06-24 01:06] LABS: Appearance Urine Clear (Clear); Bilirubin Urine Negative (Negative); Blood Urine Negative (Negative); Color Urine Yellow; Glucose Urine UA Negative (Negative); Ketones Urine Negative (Negative); Leukocyte Esterase Urine Negative (Negative); Nitrite Urine Negative (Negative); Protein Urine Negative (Negative); Specific Gravity Urine 1.018 (1.000-1.030); Urobilinogen Urine Negative (Negative)
[2022-06-24 01:16] LABS: Acetaminophen < 3 ug/ml (10-30); Salicylate < 3.0 mg/dl (3.0-30)
[2022-06-24 02:07] LABS: Amphetamines+Metham, Urine Neg (Neg); Barbiturates, Urine Neg (Neg); Benzodiazepine, Urine Neg (Neg); Cocaine, Urine Neg (Neg); MDMA (Ecstacy), Urine Neg (Neg); Methadone, Urine Neg (Neg); Opiate, Urine Neg (Neg); Phencyclidine, Urine Neg (Neg)
[2022-06-24] MEDS ORDERED: BISMUTH SUBSALICYLATE LIQD 236 ML PO PRN (03:08)
[2022-06-24] MEDS ORDERED: hydrOXYzine HCl 25 MG TAB PO PRN ×2 (03:08)
[2022-06-24] MEDS ORDERED: ALUMINUM/MAGNESIUM SUSP 30 ML UDC PO PRN (03:08)
[2022-06-24] MEDS ORDERED: MAGNESIUM HYDROXIDE SUSP 30 ML UDC PO PRN (03:08)
[2022-06-24] MEDS ORDERED: SODIUM CHLORIDE 0.65% NA SOLN 45 ML (OCEAN) PRN (03:08)
[2022-06-24] MEDS ORDERED: ACETAMINOPHEN 325 MG TAB PO PRN (03:08)
--- NOTE | 2022-06-24 03:22 | Emergency Department Note ---
ED Visit Note Patient was under psychiatric evaluation she is admitted to [facility]. for depression with suicidal ideation at 3:22 AM .
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
[2022-06-24] MEDS ORDERED: ALBUTEROL HFA 8 GM INHALER INH PRN (10:43)
[2022-06-24] MEDS: buPROPion XL 150 MG TABCR PO SCH (11:53)
[2022-06-24] MEDS: LURASIDONE HCL 40 MG TAB PO SCH (17:24)
[2022-06-24] MEDS: GABAPENTIN 100 MG CAP PO PRN (19:48)
[2022-06-24] MEDS ORDERED: GABAPENTIN 300 MG CAP PO SCH (22:00)
[2022-06-25] MEDS: FLUTICASONE/VILANTEROL 100/25MCG 14 PUFFS/INHALER INH SCH (08:18)
[2022-06-25] MEDS: buPROPion XL 150 MG TABCR PO SCH (08:18)
[2022-06-25] MEDS: GABAPENTIN 100 MG CAP PO PRN ×2 (10:52→18:49)
--- NOTE | 2022-06-25 15:54 | Psychiatric Progress Note ---
Date of Service June 25, 2022 Impression / Recommendations Impression The patient is a 21 year old with a history of depression, PTSD, anxiety, BPD and BPAD who was admitted for worsening depression, anxiety and SI with plan. Diagnostically consistent with likely depression in the context of BPAD type II based on early life depression, family history, description of prior hypomania episodes and neuropsychological testing which I reviewed. Also with some help seeking, help rejecting traits and chronic SI which may also fit with some cluster B traits versus trauma. The patient is deemed unstable and requires psychiatric hospitalization for diagnostic clarification, safety and stabilization, medication management and development of further coping skills. MNPR-identifies as non-binary 06/25/22: Still with some depression and anxiety but responding well to initial doses of Wellbutrin without side effects. Interested in IOP, DBT likely to beneficial. (1) Bipolar disorder with severe depression: (2) Depression with suicidal ideation: (3) Generalized anxiety disorder with panic attacks: (4) Post traumatic stress disorder (PTSD): (5) Cannabis use with anxiety disorder: (6) Borderline personality disorder: (7) Asthma: Plan 06/25/22: Continue gabapentin, Latuda, and Wellbutrin. Have not yet received outpatient labs so will order fasting labs for qAM. 06/24/22: The patient was admitted to the [facility] ([facility] mental health unit) on q15 min checks (behavioral with suicide precautions) for safety. The patient will participate in group, recreational, and milieu therapies and will be offered additional individual and family sessions as clinically appropriate. -get records from outpt psychiatry they reports recent labwork for fasting glucose and lipid panel so will confirm this and if not recent or abnormal will get repeat fasting labs here -Continue Latuda 20mg qd, higher doses caused akathisia in the past -Hold off on gabapentin until pharmacy can confirm potential dye allergies/alternative options -Start Welbutrin 150mg XL daily (SR formulation has dye) -reach out to her outpt psychiatrist for further collateral Inventory Assets Strengths: supportive relationships, willing to get treatment, trauma survivor/resilient Needs: safety and stabilization, medication adjustment, additional coping skills, increased outpatient services Suicide Risk Level Suicide Risk Level: High-Moderate (q15 min suicide checks) Suicide Risk Level Comments: High-Moderate due to severe depression with SI with plan prior to admission but feels safe in the hospital, able to safety contract and agrees to let nursing/staff know should they develop plan, intent or feel unable to remain safe. 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 Chief Complaint "I'm feeling a little better today". Review of Systems Sleep Information Total Hours of Sleep: 7.5 Sleep Comments: admit at 0335 Meal Information Percent Meal Consumed - Breakfast: 25 Percent Meal Consumed - Lunch: 80 Percent Meal Consumed - Dinner: 50 Nutrition Comment: pt. does not typically eat breakfast Subjective Subjective Patient was seen & assessed and interval progress reviewed with treatment team nursing and social work. Didn't sleep well last night which they attribute to napping during the prior day. Likes the WEllbutrin so far, finding that it helps with energy and mood. No side effects. Appetite is improving a little bit. Finding gabapentin helpful for anxiety. Denies SI today. Interested in possibility of IOP. Physical Exam Psychiatric Orientation: alert and oriented x 3 Apperance: appropriately dressed and appropriately groomed Eye Contact: good eye contact Motor Behavior: no abnormal motor movements Speech: normal rate/rhythm/volume of speech Affect: + constricted affect Mood: + depressed mood and + anxious mood Thought Process: goal directed thought process Thought Content: reality based without delusions Suicidal Thoughts: denies suicidal thoughts Homicidal Thoughts: denies homicidal thoughts Hallucinations: no auditory hallucinations and no visual hallucinations Cognition: recent memory grossly intact, remote memory grossly intact, attention grossly intact and language grossly intact Estimated Intelligence: consistent with education level Insight: + fair insight Judgement: + fair judgement Vital Signs (Past 24 Hours) Last Vital Signs Temp 36.2 C L 06/25/22 06:00 Pulse 74 06/25/22 07:04 Resp 16 06/25/22 06:00 BP 122/82 06/25/22 07:04 Pulse Ox 99 06/24/22 13:41 O2 Del Method 06/24/22 13:41 Results & Data ([facility]) Current Inpatient Medications Current Inpatient Medications: Current Inpatient Medications Acetaminophen (Acetaminophen 325 Mg Tab) 650 mg PO Q4H PRN PRN Reason: Headache or Minor Fever Stop: 07/24/22 03:07 Al Hydrox/Mg Hydrox/Simethicone (Aluminum/Magnesium Susp 30 Ml Udc) 30 ml PO Q4H PRN PRN Reason: GI Upset Stop: 07/24/22 03:07 Albuterol (Albuterol Hfa 8 Gm Inhaler) 2 puffs INH Q6R PRN PRN Reason: Wheezing Stop: 07/24/22 10:42 Last Admin: 06/24/22 13:41 Dose: 2 puffs Bismuth Subsalicylate (Bismuth Subsalicylate Liqd 236 Ml) 15 ml PO PRN PRN PRN Reason: Loose Stool Stop: 07/24/22 03:07 Bupropion HCl (Bupropion Xl 150 Mg Tabcr) 150 mg PO QAM ROSIO Stop: 07/24/22 10:44 Last Admin: 06/25/22 08:18 Dose: 150 mg Fluticasone/Vilanterol (Fluticasone/Vilanterol 100/25mcg 14 Puffs/Inhaler) 1 puffs INH DAILY ROSIO; Protocol Stop: 07/25/22 08:59 Last Admin: 06/25/22 08:18 Dose: 1 puffs Gabapentin (Gabapentin 300 Mg Cap) 300 mg PO HS ROSIO Stop: 07/24/22 21:59 Last Admin: 06/24/22 22:04 Dose: 300 mg Gabapentin (Gabapentin 100 Mg Cap) 100 mg PO BID PRN PRN Reason: Anxiety Stop: 07/24/22 18:53 Last Admin: 06/25/22 10:52 Dose: 100 mg Lurasidone HCl (Lurasidone Hcl 40 Mg Tab) 20 mg PO DAILYBD ROSIO Stop: 07/24/22 17:14 Last Admin: 06/24/22 17:24 Dose: 20 mg Magnesium Hydroxide (Magnesium Hydroxide Susp 30 Ml Udc) 30 ml PO DAILY PRN PRN Reason: Constipation Stop: 07/24/22 03:07 Sodium Chloride (Sodium Chloride 0.65% Na Soln 45 Ml ([place])) 1 - 2 sprays NA PRN PRN PRN Reason: Nasal Dryness/Congestion Stop: 07/24/22 03:07 Mental Health & Subst Abuse Tx Therapist Name of Therapist: [facility]
[2022-06-25] MEDS: LURASIDONE HCL 40 MG TAB PO SCH (17:44)
[2022-06-25 20:37] LABS: Marijuana Quant, GCMS Urine 355 ng/mL (<5)
[2022-06-25] MEDS: GABAPENTIN 300 MG CAP PO SCH (20:43)
[2022-06-26 07:41] LABS: Chol HDL Ratio 2.6 (0-5)
[2022-06-26] MEDS: FLUTICASONE/VILANTEROL 100/25MCG 14 PUFFS/INHALER INH SCH (08:47)
[2022-06-26] MEDS: buPROPion XL 150 MG TABCR PO SCH (08:47)
[2022-06-26] MEDS: GABAPENTIN 300 MG CAP PO SCH ×2 (08:47→20:32)
--- NOTE | 2022-06-26 09:08 | Psychiatric Progress Note ---
Date of Service June 26, 2022 Impression / Recommendations Impression The patient is a 21 year old with a history of depression, PTSD, anxiety, BPD and BPAD who was admitted for worsening depression, anxiety and SI with plan. Diagnostically consistent with likely depression in the context of BPAD type II based on early life depression, family history, description of prior hypomania episodes and neuropsychological testing which I reviewed. Also with some help seeking, help rejecting traits and chronic SI which may also fit with some cluster B traits versus trauma. The patient is deemed unstable and requires psychiatric hospitalization for diagnostic clarification, safety and stabilization, medication management and development of further coping skills. MNPR-identifies as non-binary 06/26/22: Still with some depression and anxiety but improving, tolerating Wellbutrin and additional gabapentin for mid-day anxiety. Interested in IOP, DBT likely to beneficial, SW looking into referral options. Reviewed fasting lab work showed normal glucose and lipid panel, reviewed and discussed this with Nikole. (1) Bipolar disorder with severe depression: (2) Depression with suicidal ideation: (3) Generalized anxiety disorder with panic attacks: (4) Post traumatic stress disorder (PTSD): (5) Cannabis use with anxiety disorder: (6) Borderline personality disorder: (7) Asthma: Plan 06/26/22: Continue current medications and tx plan. Needs family meeting. Looking into additional outpatient resources such as IOP. 06/25/22: Continue gabapentin, Latuda, and Wellbutrin. Have not yet received outpatient labs so will order fasting labs for qAM. 06/24/22: The patient was admitted to the [facility] ([facility] mental health unit) on q15 min checks (behavioral with suicide precautions) for safety. The patient will participate in group, recreational, and milieu therapies and will be offered additional individual and family sessions as clinically appropriate. -get records from outpt psychiatry they reports recent labwork for fasting glucose and lipid panel so will confirm this and if not recent or abnormal will get repeat fasting labs here -Continue Latuda 20mg qd, higher doses caused akathisia in the past -Hold off on gabapentin until pharmacy can confirm potential dye allergies/alternative options -Start Welbutrin 150mg XL daily (SR formulation has dye) -reach out to her outpt psychiatrist for further collateral Inventory Assets Strengths: supportive relationships, willing to get treatment, trauma survivor/resilient Needs: safety and stabilization, medication adjustment, additional coping skills, increased outpatient services Suicide Risk Level Suicide Risk Level: Moderate (q15 min suicide checks) Suicide Risk Level Comments: Moderate due to severe depression with SI with plan prior to admission but mood is improving, no SI today and feels safe in the hospital, able to safety contract and agrees to let nursing/staff know should they develop plan, intent or feel unable to remain safe. 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 Chief Complaint "I'm good". Review of Systems Sleep Information Total Hours of Sleep: 6.75 Sleep Comments: admit at 0335 Meal Information Percent Meal Consumed - Breakfast: 25 Percent Meal Consumed - Lunch: 80 Percent Meal Consumed - Dinner: 80 Nutrition Comment: pt. does not typically eat breakfast Subjective Subjective Patient was seen & assessed and interval progress reviewed with treatment team nursing and social work. They report good mood today although they did not sleep as well last night. Denies SI. Feels WEllbutrin is is helping and denies any side effects noting "it gave me the energy boost I needed". Finding midday gabapentin helpful for anxiety. Still with periods of heightened anxiety. Would like to have family meeting with their mother will reach out to them. Physical Exam Psychiatric Orientation: alert and oriented x 3 Apperance: appropriately dressed and appropriately groomed Eye Contact: good eye contact Motor Behavior: no abnormal motor movements Speech: normal rate/rhythm/volume of speech Affect: + constricted affect Mood: + depressed mood and + anxious mood Thought Process: goal directed thought process Thought Content: reality based without delusions Suicidal Thoughts: denies suicidal thoughts Homicidal Thoughts: denies homicidal thoughts Hallucinations: no auditory hallucinations and no visual hallucinations Cognition: recent memory grossly intact, remote memory grossly intact, attention grossly intact and language grossly intact Estimated Intelligence: consistent with education level Insight: + fair insight Judgement: + limited judgement Vital Signs (Past 24 Hours) Last Vital Signs Temp 36.6 C 06/26/22 06:00 Pulse 78 06/26/22 06:46 Resp 16 06/26/22 06:00 BP 119/83 06/26/22 06:46 Pulse Ox 99 06/24/22 13:41 O2 Del Method 06/24/22 13:41 Results & Data ([facility]) Laboratory Results Laboratory Results - last 24 hr 06/24/22 06/26/22 00:20 06:55 Fasting Glucose 91 Triglycerides 50 Cholesterol 162 LDL Cholesterol, Calc 90 VLDL Cholesterol, Calc 10 HDL Cholesterol 62 Cholesterol/HDL Ratio 2.6 U Marijuana THC Carboxy 355 H Drug Screen Comment SEE NOTE Current Inpatient Medications Current Inpatient Medications: Current Inpatient Medications Acetaminophen (Acetaminophen 325 Mg Tab) 650 mg PO Q4H PRN PRN Reason: Headache or Minor Fever Stop: 07/24/22 03:07 Al Hydrox/Mg Hydrox/Simethicone (Aluminum/Magnesium Susp 30 Ml Udc) 30 ml PO Q4H PRN PRN Reason: GI Upset Stop: 07/24/22 03:07 Albuterol (Albuterol Hfa 8 Gm Inhaler) 2 puffs INH Q6R PRN PRN Reason: Wheezing Stop: 07/24/22 10:42 Last Admin: 06/24/22 13:41 Dose: 2 puffs Bismuth Subsalicylate (Bismuth Subsalicylate Liqd 236 Ml) 15 ml PO PRN PRN PRN Reason: Loose Stool Stop: 07/24/22 03:07 Bupropion HCl (Bupropion Xl 150 Mg Tabcr) 150 mg PO QAM ROSIO Stop: 07/24/22 10:44 Last Admin: 06/26/22 08:47 Dose: 150 mg Fluticasone/Vilanterol (Fluticasone/Vilanterol 100/25mcg 14 Puffs/Inhaler) 1 puffs INH DAILY ROSIO; Protocol Stop: 07/25/22 08:59 Last Admin: 06/26/22 08:47 Dose: 1 puffs Gabapentin (Gabapentin 100 Mg Cap) 100 mg PO BID PRN PRN Reason: Anxiety Stop: 07/24/22 18:53 Last Admin: 06/25/22 18:49 Dose: 100 mg Gabapentin (Gabapentin 300 Mg Cap) 300 mg PO BID ROSIO Stop: 07/25/22 20:59 Last Admin: 06/26/22 08:47 Dose: 300 mg Lurasidone HCl (Lurasidone Hcl 40 Mg Tab) 20 mg PO DAILYBD ROSIO Stop: 07/24/22 17:14 Last Admin: 06/25/22 17:44 Dose: 20 mg Magnesium Hydroxide (Magnesium Hydroxide Susp 30 Ml Udc) 30 ml PO DAILY PRN PRN Reason: Constipation Stop: 07/24/22 03:07 Sodium Chloride (Sodium Chloride 0.65% Na Soln 45 Ml ([place])) 1 - 2 sprays NA PRN PRN PRN Reason: Nasal Dryness/Congestion Stop: 07/24/22 03:07 Mental Health & Subst Abuse Tx Therapist Name of Therapist: [facility]
[2022-06-26] MEDS: LURASIDONE HCL 40 MG TAB PO SCH (17:51)
[2022-06-27] MEDS: GABAPENTIN 300 MG CAP PO SCH (08:58)
[2022-06-27] MEDS: buPROPion XL 150 MG TABCR PO SCH (08:58)
[2022-06-27] MEDS: FLUTICASONE/VILANTEROL 100/25MCG 14 PUFFS/INHALER INH SCH (08:58)
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
== END 2022-06-27 13:46 | disposition home or self-care (01) | DRG 885 ==
LOC: ED 21:12 → 3S 06-24 03:08 → SUATTDRO 06-24 03:08 → 3S 06-24 03:30